=== PATIENT | male | born 1990 | race Caucasian/White ===

== ENCOUNTER 2018-10-24 15:25 | Emergency (ER) | payer SELFPAY ==
[~2018-10-24] VITALS: Ht 177.8 cm; Wt 64.4 kg
[2018-10-24] MEDS ORDERED: ALPR0.5T PO (16:15)
--- NOTE | 2018-10-24 16:16 | PHYS DOC ---
Adult General Chief Complaint Chief Complaint: ANXIETY/PANIC ATTACK HPI HPI Patient is a 28 year old male who presents with a panic attack as [place] the [place]. He states that he began having some generalized anxiety which began to increase in a full-blown panic. The patient states he has had panic attacks in the past. He states that he started to have numbness in his hands and numbness and tingling around his mouth. He states that this was worse than his previous panic attacks. He does not have any anti-anxiety medication. He lives in [place], [place]. He states that he did have a large amount of alcohol last night which may have precipitated the panic attack. Review of Systems Review of Systems Constitutional: Denies fever or chills [] Eyes: Denies change in visual acuity, redness, or eye pain [] HENT: Denies nasal congestion or sore throat [] Respiratory: Denies cough or shortness of breath [] Cardiovascular: No additional information not addressed in HPI [] GI: Denies abdominal pain, nausea, vomiting, bloody stools or diarrhea [] : Denies dysuria or hematuria [] Musculoskeletal: Denies back pain or joint pain [] Integument: Denies rash or skin lesions [] Neurologic: Denies headache, focal weakness or sensory changes [] Endocrine: Denies polyuria or polydipsia [] All other systems were reviewed and found to be within normal limits, except as documented in this note. Current Medications Current Medications Current Medications Medications (Trade) Dose Ordered Sig/René Start Time Stop Time Status Last Admin Dose Admin Alprazolam (Xanax) 0.5 mg 1X ONCE 10/24/18 17:15 10/24/18 17:16 DC 10/24/18 17:03 0.5 MG Allergies Allergies Allergies Coded Allergies Type Severity Reaction Last Updated Verified No Known Drug Allergies 10/24/18 No Physical Exam Physical Exam Constitutional: Well developed, well nourished, no acute distress, non-toxic appearance. [] HENT: Normocephalic, atraumatic, bilateral external ears normal, oropharynx moist, no oral exudates, nose normal. [] Eyes: PERRLA, EOMI, conjunctiva normal, no discharge. [] Neck: Normal range of motion, no tenderness, supple, no stridor. [] Cardiovascular:Heart rate regular rhythm, no murmur [] Lungs & Thorax: Bilateral breath sounds clear to auscultation [] Abdomen: Bowel sounds normal, soft, no tenderness, no masses, no pulsatile masses. [] Skin: Warm, dry, no erythema, no rash. [] Back: No tenderness, no CVA tenderness. [] Extremities: No tenderness, no cyanosis, no clubbing, ROM intact, no edema. [] Neurologic: Alert and oriented X 3, normal motor function, normal sensory function, no focal deficits noted. [] Psychologic: Affect tearful, judgement normal, mood anxious[] Current Patient Data Vital Signs Vital Signs Date Time Temp Pulse Resp B/P (MAP) Pulse Ox O2 Delivery O2 Flow Rate FiO2 10/24/18 16:54 97.9 102 18 167/98 (121) 98 97.9 EKG EKG [] Radiology/Procedures Radiology/Procedures [] Course & Med Decision Making Course & Med Decision Making Pertinent Labs and Imaging studies reviewed. (See chart for details) []The patient was given a dose of Xanax in the emergency department. He states that his symptoms have been relieved. He states that the symptoms had started resolving before he actually made it into the emergency department, but he was afraid that he might worsen again without intervention. Dragon Disclaimer Dragon Disclaimer This electronic medical record was generated, in whole or in part, using a voice recognition dictation system. Departure Departure Impression: Primary Impression: Panic attack Disposition: 01 HOME, SELF-CARE Condition: STABLE Patient Instructions: Anxiety and Panic Attacks Additional Instructions: Take the medication as directed. This medication may cause drowsiness. Do not drive or operate heavy machinery until you know how you are affected by this medication. Follow up with your primary care provider for further evaluation of your panic attack and anxiety disorder. If worsening return to the closest emergency department. Scripts Alprazolam (XANAX) 0.5 Mg Tablet 1 TAB PO BID for panic attack, #30 TAB Prov: YANIV OSBORNE APRN 10/24/18 YANIV OSBORNE APRN Oct 24, 2018 16:16
[2018-10-24 16:54] VITALS: BP 167/98
[2018-10-24] MEDS ORDERED: ALPRAZolam 0.5 MG TABLET PO ONE (17:15)
== END 2018-10-24 17:10 | disposition home or self-care (01) ==
LOC: ER 15:25
DX: F41.0 Panic disorder [episodic paroxysmal anxiety] (principal)
CPT/HCPCS: 99284